=== PATIENT | female | born 1965 | race Caucasian/White ===

== ENCOUNTER → 2021-04-01 14:23 | Outpatient (CLI) | payer OTHER, SELFPAY ==
--- NOTE | 2021-04-01 | DI.MG.S_ITS ---
BILATERAL DIGITAL SCREENING MAMMOGRAM 3D/2D WITH CAD: 04/01/2021 CLINICAL: Routine screening. Comparison is made to exams dated: 10/23/2014 mammogram, 06/07/2013 mammogram, and 01/30/2012 mammogram - outside location. There are scattered fibroglandular elements in both breasts. Current study was also evaluated with a Computer Aided Detection (CAD) system. No significant masses, calcifications, or other findings are seen in either breast. There has been no significant interval change. IMPRESSION: NEGATIVE There is no mammographic evidence of malignancy. A 1 year screening mammogram is recommended. This exam was interpreted at Station ID: [id number]. NOTE: For mammograms, a report in lay terms will be sent to the patient. Approximately 15% of breast malignancies will not be visualized mammographically. In the management of a palpable breast mass, a negative mammogram must not discourage biopsy of a clinically suspicious lesion. Electronically Signed By: Omar Garcia M.D. at/cyndee:04/01/2021 15:35:48 letter sent: Normal Exam ACR BI-RADS Category 1: Negative [id number]
== END ==
PROVIDERS: PCP Family Medicine; Referring Provider Family Medicine; Visit Provider Family Medicine
DX: Z12.31 Encounter for screening mammogram for malignant neoplasm of breast (principal)
CPT/HCPCS: 77063; 77067

== ENCOUNTER → 2022-04-21 08:02 | Outpatient (CLI) | payer OTHER, SELFPAY ==
--- NOTE | 2022-04-21 | DI.NM.S_ITS ---
PROCEDURE: NM UPTAKE AND SCAN RADIOPHARMACEUTICAL: 0.38 mCi I-123 sodium iodide by mouth. INDICATIONS: Nontoxic single thyroid nodule TECHNIQUE: I-123 sodium iodide was administered orally. Anterior neck images were obtained, and iodine uptake by the thyroid gland calculated using roads supervisor's software. COMPARISON: None. FINDINGS: Morphology: Diffusely increased uptake within the right thyroid. Uptake: 6 hour thyroid uptake is 10.8% ; normal ranges are from 6-18%. 24 hour thyroid uptake is 17.4% ; normal ranges are from 10-30%. IMPRESSION: 1. Normal thyroid uptake values. 2. Diffusely increased right thyroid uptake; this could be further assessed with ultrasound, if clinically indicated. Dictated by: Nichelle Luong M.D. on 04/22/2022 at 11:19 Approved by: Nichelle Luong M.D. on 04/22/2022 at 11:21
== END ==
PROVIDERS: PCP Family Medicine; Referring Provider Family Medicine; Visit Provider Family Medicine
DX: E04.1 Nontoxic single thyroid nodule (principal)
CPT/HCPCS: 78014; A9516

== ENCOUNTER → 2022-06-10 09:34 | Outpatient (CLI) | payer OTHER, SELFPAY ==
--- NOTE | 2022-06-10 09:37 | DI.US.S_ITS ---
PROCEDURE: US THYROID INDICATIONS: Nontoxic single thyroid nodule TECHNIQUE: Real-time scanning was performed of the thyroid gland, with image documentation. COMPARISON: [place], [place], NM UPTAKE AND SCAN, 04/21/2022, 8:45. [facility], , US THYROID, 03/18/2022, 9:33. FINDINGS: Suboptimal exam due to body habitus. Right: Thyroid lobe measures 5.0 x 1.5 x 2.1 cm, and is heterogeneous in echotexture. Left: Thyroid lobe measures 5.4 x 1.2 x 1.5 cm, and is heterogeneous in echotexture. Isthmus: 3.2 mm thick. Nodule number: 1 Location: Right mid Size: 0.7 x 0.4 x 0.4 cm; previously 0.5 x 0.4 x 0.4 cm. Composition: Predominant cystic. Echogenicity: Hypoechoic Shape: wider than tall. Margins: Smooth Echogenic foci: Non Total points: 2 ACR TI-RADS category: 2 Nodule number: 2 Location: Left mid Size: 0.4 x 0.4 x 0 point cm. Composition: Cyst Echogenicity: Hypoechoic Shape: wider than tall. Margins: Small Echogenic foci: None Total points: 2 ACR TI-RADS category: 2 Multiple subcentimeter cervical lymph nodes are present. The largest lymph node on the right side measures 1.2 x 0.8 x 0.6 cm. The largest lymph node the left measures 1.0 x 0.6 x 0.6 cm. IMPRESSION: 1. The questionable 2.1 x 1.2 x 1.3 cm TI-RADS 4 nodule seen on the last exam is not well visualized on the current exam. Recommend a short-term follow-up ultrasound in 6-12 months. 2. Small thyroid nodules are present bilaterally. 3. Thyroid gland demonstrates heterogeneous echotexture. Recommend clinical correlation for history of thyroiditis. 4. Multiple subcentimeter cervical lymph nodes are present bilaterally, most likely reactive. ACR TI-RADS definitions and recommendations: TI-RADS 1 (benign): 0 points. FNA not needed. TI-RADS 2 (not suspicious): 2 points. FNA not needed. TI-RADS 3 (mildly suspicious): 3 points. * FNA if 2.5 cm or larger, follow up if 1.5 cm or larger (at 1, 3, and 5 years). TI-RADS 4 (moderately suspicious): 4-6 points. * FNA if 1.5 cm or larger, follow up if 1 cm or larger (at 1, 2, 3, and 5 years). TI-RADS 5 (highly suspicious): 7 points or more. * FNA if 1 cm or larger, follow up if 0.5 cm or larger (every year for 5 years). Dictated by: Berny Mccrary M.D. on 06/10/2022 at 12:51 Approved by: Berny Mccrary M.D. on 06/10/2022 at 13:03
== END ==
PROVIDERS: Referring Provider Otolaryngology; Visit Provider Otolaryngology
DX: E04.2 Nontoxic multinodular goiter (principal); R59.0 Localized enlarged lymph nodes
CPT/HCPCS: 76536

== ENCOUNTER 2022-06-26 19:35 | Emergency (ER) | payer OTHER, SELFPAY ==
--- NOTE | 2022-06-26 19:38 | ED.WOUNDLAC ---
HPI - Wound/Laceration <ANDREW Olvera Last Filed: 06/26/22 20:01> General Chief Complaint: Wound/Laceration Stated Complaint: RT. hand pinky finger laceration Time Seen by Provider: 06/26/22 19:38 History of Present Illness HPI narrative: This is a 56-year-old female presents emergency department due to cutting her right 5th finger while cooking in the kitchen. States it was a clean knife. Tetanus is not up-to-date. Does not report any decreases in range of motion of the finger. Related Data Allergies Allergy/AdvReac Type Severity Reaction Status Date / Time Penicillins [PENICILLINS] Allergy Unknown Unverified 12/09/17 12:05 Sulfa (Sulfonamide Allergy Unknown Unverified 12/09/17 12:05 Antibiotics) [SULFA (SULFONAMIDE ANTIBIOTICS)] Review of Systems <Rebel Nix PA-C - Last Filed: 06/26/22 20:01> Review of Systems Narrative: GENERAL: Denies chills, fatigue, malaise, fever, sweats. HEENT: Denies sinus pain, ear pain, sore throat, difficulty swallowing, dizziness. RESPIRATORY: Denies dyspnea, cough, wheezing, hemoptysis, sputum. CARDIOVASCULAR: Denies chest pain, palpitations, orthopnea, edema, GASTROINTESTINAL: Denies nausea, vomiting, abdominal pain, diarrhea, constipation, melena. : Denies dysuria, frequency, incontinence, hematuria, urinary retention. MUSCULOSKELETAL: Finger laceration, denies weakness, joint pain, or bony pain SKIN: Denies rash, skin lesions, or other NEUROLOGIC: Denies weakness, headache, numbness, change in speech, confusion, seizures, incoordination. PSYCHIATRIC: No concerning psychosocial issues. 12 point review of systems is negative except for those stated above Patient History <ANDREW Olvera Last Filed: 06/26/22 20:01> Social History Smoking Status: Never smoker Exam <ANDREW Olvera Last Filed: 06/26/22 20:01> Narrative Exam Narrative: GENERAL: Well-developed patient, in mild distress. HEAD: Atraumatic. Normocephalic. EYES: Pupils equal round and reactive. Extraocular motions intact. No scleral icterus. No injection or drainage. ENT: Nose without bleeding, purulent drainage. Throat without erythema, tonsillar hypertrophy or exudate. Airway patent. NECK: Trachea midline. Non tender CARDIOVASCULAR: Regular rate and rhythm without murmurs, gallops, or rubs. RESPIRATORY: Clear to auscultation. Breath sounds equal bilaterally. No wheezes, rales, or rhonchi. GASTROINTESTINAL: Abdomen soft, non-tender, nondistended. EXTREMITIES: No edema or joint tenderness. BACK: Nontender without deformity or crepitance. No flank tenderness. NEURO: AOx3. SKIN: 1 cm laceration to the palmar aspect of the right 5th finger. No active bleeding. No rash or erythema of visible areas Initial Vital Signs Initial Vital Signs: Vital Signs Temperature 97.9 F 06/26/22 19:43 Pulse Rate 68 06/26/22 19:43 Respiratory Rate 18 06/26/22 19:43 Blood Pressure 167/90 H 06/26/22 19:43 Pulse Oximetry 98 06/26/22 19:43 Oxygen Delivery Method 06/26/22 19:43 <Fabienne Thurston DO - Last Filed: 06/27/22 07:27> Initial Vital Signs Initial Vital Signs: Vital Signs Temperature 97.9 F 06/26/22 19:43 Pulse Rate 68 06/26/22 19:43 Respiratory Rate 18 06/26/22 19:43 Blood Pressure 167/90 H 06/26/22 19:43 Pulse Oximetry 98 06/26/22 19:43 Oxygen Delivery Method 06/26/22 19:43 Procedures <ANDREW Olvera Last Filed: 06/26/22 20:01> Laceration Repair Laceration 1: Time of procedure: 19:51 Site: hand Size (cm): 1 Description: linear Depth: simple, single layer Local Anesthetic: lidocaine 1% Amount of anesthesia used (mL): 2 Pre-repair: irrigated extensively Skin layer closed with: nylon Skin layer suture size: 5-0 Number of sutures: 2 Technique: simple, interrupted Course <ANDREW Olvera Last Filed: 06/26/22 20:01> Orders Ordered: Discontinued Medications Diphtheria/Tetanus/Acell Pertussis (Diph,Pertuss(Acell),Tet Vac/Pf 0.5 Ml Syringe) 0.5 ml IM .ONCE ONE Stop: 06/26/22 19:50 Last Admin: 06/26/22 19:59 Dose: Not Given Documented By: RL Diphtheria/Tetanus/Acell Pertussis (Tet,Diph,Pertuss(Acell),Vac/Pf 0.5 Ml Syringe) 0.5 ml IM .ONCE ONE Stop: 06/26/22 20:00 Last Admin: 06/26/22 20:07 Dose: 0.5 ml Documented By: RL Lidocaine HCl (Lidocaine 2% Inj Mdv 20ml) 5 ml INJ NOW ONE Stop: 06/26/22 19:52 Last Admin: 06/26/22 20:08 Dose: 5 ml Documented By: RL Lidocaine/Epinephrine (Lidocaine 1% W/Epi) 4 ml INJ INTRA-OP ONE Stop: 06/26/22 19:41 Last Admin: 06/26/22 20:12 Dose: Not Given Documented By: RL Vital Signs Vital signs: Vital Signs - 8 hr 06/26/22 19:43 Temperature 97.9 F Pulse Rate 68 Respiratory Rate 18 Blood Pressure 167/90 H Pulse Oximetry 98 Oxygen Delivery Method Room Air <Fabienne Thurston DO - Last Filed: 06/27/22 07:27> Orders Ordered: Discontinued Medications Diphtheria/Tetanus/Acell Pertussis (Diph,Pertuss(Acell),Tet Vac/Pf 0.5 Ml Syringe) 0.5 ml IM .ONCE ONE Stop: 06/26/22 19:50 Last Admin: 06/26/22 19:59 Dose: Not Given Documented By: RL Diphtheria/Tetanus/Acell Pertussis (Tet,Diph,Pertuss(Acell),Vac/Pf 0.5 Ml Syringe) 0.5 ml IM .ONCE ONE Stop: 06/26/22 20:00 Last Admin: 06/26/22 20:07 Dose: 0.5 ml Documented By: RL Lidocaine HCl (Lidocaine 2% Inj Mdv 20ml) 5 ml INJ NOW ONE Stop: 06/26/22 19:52 Last Admin: 06/26/22 20:08 Dose: 5 ml Documented By: RL Lidocaine/Epinephrine (Lidocaine 1% W/Epi) 4 ml INJ INTRA-OP ONE Stop: 06/26/22 19:41 Last Admin: 06/26/22 20:12 Dose: Not Given Documented By: RL Vital Signs Vital signs: Vital Signs - 8 hr 06/26/22 19:43 Temperature 97.9 F Pulse Rate 68 Respiratory Rate 18 Blood Pressure 167/90 H Pulse Oximetry 98 Oxygen Delivery Method Room Air MDM - Wound/Laceration <Rebel Nix PA-C - Last Filed: 06/26/22 20:01> [facility] Narrative Medical decision making narrative: 56-year-old female presents to the emergency department due to a small laceration to the right 5th finger. This was closed using sutures without complications. Tetanus updated. No evidence of any kind of flexor tendon damage as patient had full range of motion. Discharge Plan Departure Patient Disposition: Home Clinical Impression: Laceration Instructions: DI for Laceration Repair Activity Restrictions/Additional Instructions: Thank you for coming to the [facility] Emergency Department today. Please follow-up with your primary care provider or walk-in clinic for suture removal in approximately 7-10 days. I hope you feel better soon. Referrals: Provider,Vero LOERA [Primary Care Provider] - Visit Report Forms: Patient Portal/API <Fabienne Thurston DO - Last Filed: 06/27/22 07:27> Cosign ED Attending Leleature Attestation: I was immediately available in the department for consultation. Documentation has been reviewed. I agree with assessment and plan.
[2022-06-26 19:43] VITALS: BP 167/90; PULSE 68; RESP 18; TEMP 36.6; O2SAT 98
[2022-06-26] MEDS: TET,DIPH,PERTUSS(ACELL),VAC/PF 0.5 ML SYRINGE IM (20:07)
[2022-06-26] MEDS: LIDOCAINE 2% INJ MDV 20ML 5 ML INJ (20:08)
[2022-06-26 20:20] VITALS: BP 144/81; PULSE 64; RESP 18; O2SAT 98
== END 2022-06-26 20:21 | disposition home or self-care (01) ==
LOC: ED 19:39
PROVIDERS: Emergency Provider Physician Assistant Medical
DX: S61.216A Laceration without foreign body of right little finger without damage to nail, initial encounter (principal); W26.0XXA Contact with knife, initial encounter; Z23 Encounter for immunization
CPT/HCPCS: 12001; 90471; 99283; 90715

== ENCOUNTER 2022-12-22 16:40 | Emergency (ER) | payer OTHER, SELFPAY ==
[2022-12-22] VITALS (11 sets, daily range): BP systolic 159–174; BP diastolic 81–94; PULSE 59–84; RESP 18; TEMP 36.9; O2SAT 95–97; BMI 40.9
[2022-12-22] MEDS: KETOROLAC 30 MG/ML VIAL 15 MG IV (17:09)
[2022-12-22 17:13] LABS: Add Manual Diff / Slide Review NO; Basophils Absolute Auto 100 /uL (0-100); Basophils Percent Auto 0.7 % (0-2); Eosinophils Absolute Auto 400 /uL (0-450); Eosinophils Percent Auto 4.2 % (2-4); Hemoglobin 13.4 g/dL (12.0-16.0); Lymphocytes Absolute Auto 3700 /uL (1100-4500); Lymphocytes Percent Auto 38.8 % (25-40); Mean Corpuscular HGB Conc 33.6 % (30-36); Mean Corpuscular Hemoglobin 29.3 PG (26-34); Mean Corpuscular Volume 87.2 fL (80-100); Monocytes Absolute Auto 600 /uL (0-900); Monocytes Percent Auto 6.7 % (3-14); Neutrophils Absolute Auto 4700 /uL (1500-7000); Neutrophils Percent Auto 49.6 % (50-75); Platelet Count 300 X10^3/uL (150-400); Red Blood Cell Count 4.59 X10^6/uL (4.0-5.2); Red Cell Distribution Width 14.2 % (11.6-14.8); White Blood Cell Count 9.5 X10^3/uL (4.5-11.0)
--- NOTE | 2022-12-22 17:20 | DI.CT.S_ITS ---
PROCEDURE: CT KIDNEY URETER BLADDER (KUB) INDICATIONS: Left flank pain, h/o kidney stones TECHNIQUE: Axial sections were acquired from the lung bases to the pubic symphysis. Coronal and sagittal reformats were performed. For radiation dose reduction, the following was used: automated exposure control, adjustment of mA and/or kV according to patient size. COMPARISON: None. FINDINGS: Image quality: Excellent. Lung bases: Unremarkable. Heart: No significant findings. URINARY: Right Kidney: No stones or hydronephrosis. Right Ureter: No hydroureter. Left Kidney: There are 4 calcifications within the inferior aspect of the right kidney. The 7 mm posterior calcification on series 2, image 39 measures Hounsfield units 559. The more anterior calcification on series 2, image 39 measures 5 mm Hounsfield units 545. The calcification overlying the renal pelvis on series 2, image 36 measures 6 mm Hounsfield units 722. The parenchymal calcification on series 2, image 37 measures 6 mm, Hounsfield units 456. No obstruction. Left Ureter: No hydroureter. Bladder: Normal wall thickness. No stones. ABDOMEN: Liver: Liver is enlarged measuring 21 cm with mild steatosis. Gallbladder: Unremarkable. Biliary ducts: Unremarkable. Pancreas: Unremarkable. Spleen: Unremarkable. Adrenal Glands: Unremarkable. Stomach and Bowel: Stomach, small bowel loops, and colon are nonobstructive. Scattered colonic diverticula are present. Peritoneum: No abnormal intraperitoneal fluid. No free air. Ventral Wall: No hernia. Abdominal Nodes: No enlarged retroperitoneal or mesenteric lymph nodes. Vessels: Aorta and inferior vena cava are normal in size. PELVIS: Pelvic Organs: Unremarkable. Pelvic Nodes: Unremarkable. Miscellaneous: No inguinal hernias are seen. Bones: Unremarkable. IMPRESSION: Nonobstructing left renal calculi. Diverticulosis. Hepatomegaly with steatosis. Dictated by: Catherine Batista M.D. on 12/22/2022 at 17:49 Approved by: Catherine Batista M.D. on 12/22/2022 at 17:52
[2022-12-22 17:27] LABS: Alanine Aminotransferase 27 IU/L (<35); Albumin 4.4 g/dL (3.5-5.0); Albumin Globulin Ratio 1.2 (1.0-2.8); Alkaline Phosphatase 117 U/L (38-126); Aspartate Aminotransferase 25 IU/L (14-36); BUN Creatinine Ratio 28.3 (6-22); Bilirubin Total 0.4 mg/dL (0.2-1.3); Blood Urea Nitrogen 15 mg/dL (7-17); Carbon Dioxide 26 mmol/L (22-32); Chloride 101 mmol/L (98-107); Estimated Glomerular Filt Rate > 60 mL/min (>60); Globulin 3.6 g/dL (1.7-4.1); Glucose 103 mg/dL (70-100); HEMOLYSIS 18 (0-50); Lipase 235 U/L (23-300); Potassium 3.8 mmol/L (3.4-5.1); Sodium 136 mmol/L (137-145)
--- NOTE | 2022-12-22 19:06 | ED.GENADULT ---
HPI - General Adult General Chief complaint: Urogenital-Female Stated complaint: POSSIBLE KIDNEY STONES Time Seen by Provider: 12/22/22 18:31 Source: patient Mode of arrival: Ambulatory Limitations: no limitations History of Present Illness HPI narrative: Patient is a 57-year-old female. Has a known history of kidney stones. Is here for evaluation of left-sided flank pain. She states that this has happened to her off and on for the past several years. He does have a urologist that she is seen in the past but nothing recent. The discomfort that she is having now started within the past 1-2 days. She is having some blood in her urine. The pain is on her left flank. No fevers. No vomiting. Related Data Previous Rx's Medication Instructions Recorded hydrocodone 5 mg-acetaminophen 325 1 tab PO Q6H PRN pain #10 tabs 12/22/22 mg tablet ondansetron 4 mg disintegrating 4 mg PO Q6H PRN nausea and 12/22/22 tablet vomiting #10 tabs Allergies Allergy/AdvReac Type Severity Reaction Status Date / Time Penicillins [PENICILLINS] Allergy Unknown Verified 12/22/22 16:48 Sulfa (Sulfonamide Allergy Unknown Verified 12/22/22 16:48 Antibiotics) [SULFA (SULFONAMIDE ANTIBIOTICS)] Review of Systems Constitutional Constitutional: Reports system reviewed and no additional complaints, except as documented Respiratory Respiratory: Reports system reviewed and no additional complaints, except as documented Gastrointestinal Gastrointestinal: Reports system reviewed and no additional complaints, except as documented Genitourinary Genitourinary: Reports system reviewed and no additional complaints, except as documented Integumentary/Breasts Skin/Breast: Reports system reviewed and no additional complaints, except as documented Neurologic Neurologic: Reports system reviewed and no additional complaints, except as documented Hematologic/Lymphatic On Anticoagulants: No Patient History Social History Smoking Status: Never smoker Smoking Status: Never smoker alcohol intake frequency: a few times a month Substance Use Type: marijuana Exam Initial Vital Signs Initial Vital Signs: Vital Signs Temperature 98.5 F 12/22/22 16:43 Pulse Rate 77 12/22/22 16:43 Respiratory Rate 18 12/22/22 16:43 Blood Pressure 165/86 H 12/22/22 16:43 Pulse Oximetry 95 12/22/22 16:43 Oxygen Delivery Method Room Air 12/22/22 16:43 Const General: cooperative, comfortable and No ill appearing HENVA Head: normal to inspection and normocephalic Resp Effort & Inspection: normal respiratory effort Cardio Rate: regular rate GI Inspection: normal to inspection and non-distended Palpation: No tender Skin General: no rashes or lesions noted Neuro General: patient alert, patient awake and moves all extremities Extrem General: normal to inspection and capillary refill normal Course Orders Ordered: ED Orders 12/22/22 17:08 Complete Blood Count AUTO DIFF Stat Comprehensive Metabolic Panel Stat Lipase Stat 12/22/22 17:20 CT kidney ureter bladder (KUB) Stat 12/22/22 19:33 Urinalysis and Microscopic Stat Discontinued Medications Hydrocodone Bitart/Acetaminophen (Hydrocodone/Acet 5/325 Prepack) [facility] Stop: 12/22/22 20:15 Last Admin: 12/22/22 20:34 Dose: 1 bottle Documented By: KAYLEIGH Ketorolac Tromethamine (Ketorolac 30 Mg/Ml Vial) 15 mg IV NOW ONE Stop: 12/22/22 16:57 Last Admin: 12/22/22 17:09 Dose: 15 mg Documented By: AMU Ondansetron HCl (Ondansetron 4 Mg Odt) 4 mg PO NOW PRN PRN Reason: Nausea And Vomiting Ondansetron HCl (Ondansetron 4 Mg/2 Ml Inj) 4 mg IV NOW PRN PRN Reason: Nausea And Vomiting Ondansetron HCl (Ondansetron 4 Mg Odt Prepack) [facility] bottle [facility] Stop: 12/22/22 20:15 Last Admin: 12/22/22 20:34 Dose: 1 bottle Documented By: KAYLEIGH Vital Signs Vital signs: Vital Signs - 8 hr 12/22/22 16:43 12/22/22 18:26 12/22/22 18:28 Temperature 98.5 F Pulse Rate 77 84 71 Respiratory Rate 18 Blood Pressure 165/86 H Pulse Oximetry 95 96 97 Oxygen Delivery Method Room Air 12/22/22 18:28 12/22/22 18:30 12/22/22 18:30 Temperature Pulse Rate 64 Respiratory Rate Blood Pressure 167/86 H 165/85 H Pulse Oximetry 96 Oxygen Delivery Method 12/22/22 19:00 12/22/22 19:01 12/22/22 19:01 Temperature Pulse Rate 67 64 Respiratory Rate Blood Pressure 165/81 H Pulse Oximetry 96 95 Oxygen Delivery Method 12/22/22 19:40 12/22/22 19:41 12/22/22 19:41 Temperature Pulse Rate 61 62 Respiratory Rate Blood Pressure 159/94 H Pulse Oximetry 96 96 Oxygen Delivery Method 12/22/22 20:00 12/22/22 20:00 12/22/22 20:30 Temperature Pulse Rate 61 64 Respiratory Rate Blood Pressure 174/90 H Pulse Oximetry 97 97 Oxygen Delivery Method 12/22/22 20:31 12/22/22 20:31 Temperature Pulse Rate 59 L Respiratory Rate Blood Pressure 167/85 H Pulse Oximetry 97 Oxygen Delivery Method Medical Decision Making Lab Data Lab results reviewed: Yes I reviewed the patient's lab results. 12/22/22 17:08 12/22/22 17:08 Labs: Lab Results 12/22/22 12/22/22 12/22/22 Range/Units 17:08 17:08 19:33 WBC 9.5 (4.5-11.0) X10^3/uL RBC 4.59 (4.0-5.2) X10^6/uL Hgb 13.4 (12.0-16.0) g/dL Hct 40.0 (36-46) % MCV 87.2 (80-100) fL MCH 29.3 (26-34) PG MCHC 33.6 (30-36) % RDW 14.2 (11.6-14.8) % Plt Count 300 (150-400) X10^3/uL Neut % (Auto) 49.6 L (50-75) % Lymph % (Auto) 38.8 (25-40) % [place] % (Auto) 6.7 (3-14) % Eos % (Auto) 4.2 H (2-4) % Baso % (Auto) 0.7 (0-2) % Neut # (Auto) 4700 (2649-2102) /uL Lymph # (Auto) 3700 (4051-4011) /uL [place] # (Auto) 600 (0-900) /uL Eos # (Auto) 400 (0-450) /uL Baso # (Auto) 100 (0-100) /uL Sodium 136 L (137-145) mmol/L Potassium 3.8 (3.4-5.1) mmol/L Chloride 101 (98-107) mmol/L Carbon Dioxide 26 (22-32) mmol/L BUN 15 (7-17) mg/dL Creatinine 0.53 (0.52-1.04) mg/dL Estimated GFR > 60 (>60) mL/min BUN/Creatinine Ratio 28.3 H (6-22) Glucose 103 H (70-100) mg/dL Calcium 9.0 (8.4-10.2) mg/dL Total Bilirubin 0.4 (0.2-1.3) mg/dL AST 25 (14-36) IU/L ALT 27 (<35) IU/L Alkaline Phosphatase 117 (38-126) U/L Total Protein 8.0 (6.3-8.2) g/dL Albumin 4.4 (3.5-5.0) g/dL Globulin 3.6 (1.7-4.1) g/dL Albumin/Globulin Ratio 1.2 (1.0-2.8) Lipase 235 (23-300) U/L Urine Color Yellow Urine Appearance Clear Urine pH 6.0 (4.5-8.0) Ur Specific [place] 1.025 (1.000-1.035) Urine Protein Trace H (Negative) Urine Glucose (UA) 2+ H (Negative) g/dL Urine Ketones Trace H (NEGATIVE) Urine Occult Blood 3+ H (Negative) Urine Nitrate Negative (Negative) Urine Bilirubin Negative (NEGATIVE) Urine Urobilinogen 0.2 (0.2) E.U./dL Ur Leukocyte Esterase Negative (NEGATIVE) Urine RBC 10-30/hpf H (0-5/HPF) Urine WBC 1-5/hpf (0-5/HPF) Ur Squamous Epith Cells 0-1 /hpf (0-5/HPF) Urine Bacteria None seen (None) Urine Mucus 1+ H (Negative) Ur Culture Indicated? Cult not indicated Imaging Data CT scan - abdomen/pelvis: Radiologist's Impression: PROCEDURE:? CT KIDNEY URETER BLADDER (KUB) ? INDICATIONS:? Left flank pain, h/o kidney stones ? TECHNIQUE:? Axial sections were acquired from the lung bases to the pubic symphysis.? Coronal and sagittal reformats were performed.? For radiation dose reduction, the following was used: ?automated exposure control, adjustment of mA and/or kV according to patient size.? ? COMPARISON:? None. ? FINDINGS:? Image quality:? Excellent.? ? Lung bases:? Unremarkable.? ? Heart:? No significant findings. ? URINARY: Right Kidney:? ?No stones or hydronephrosis.? Right Ureter:? No hydroureter.? ? Left Kidney:? There are 4 calcifications within the inferior aspect of the right kidney.? The 7 mm posterior calcification on series 2, image 39 measures Hounsfield units 559.? The more anterior calcification on series 2, image 39 measures 5 mm Hounsfield units 545. ?The calcification overlying the renal pelvis on series 2, image 36 measures 6 mm Hounsfield units 722. The parenchymal calcification on series 2, image 37 measures 6 mm, Hounsfield units 456. No obstruction.? Left Ureter:? No hydroureter.? ? Bladder:? Normal wall thickness. No stones.? ABDOMEN: Liver:? Liver is enlarged measuring 21 cm with mild steatosis. Gallbladder:? Unremarkable.? ? Biliary ducts:? Unremarkable.? ? Pancreas:? Unremarkable.? ? Spleen:? Unremarkable.? ? Adrenal Glands:? Unremarkable.? ? ? Stomach and Bowel:? Stomach, small bowel loops, and colon are nonobstructive.? Scattered colonic diverticula are present. Peritoneum:? No abnormal intraperitoneal fluid.? No free air.? ? Ventral Wall:? ?No hernia.? Abdominal Nodes:? No enlarged retroperitoneal or mesenteric lymph nodes.? Vessels:? Aorta and inferior vena cava are normal in size.? ? PELVIS: Pelvic Organs:? Unremarkable.? ? Pelvic Nodes: Unremarkable. Miscellaneous: No inguinal hernias are seen.? Bones:? Unremarkable. ? IMPRESSION:? ? Nonobstructing left renal calculi. ? Diverticulosis. ? Hepatomegaly with steatosis. MDM Narrative Medical decision making narrative: Patient does have a left-sided kidney stone but no ureteral stone. Her urinalysis does have blood but no signs of infection. Her kidney functions unremarkable. CT scan of her belly shows no other indication for the abdominal pain. No fevers. No indication for surgical consultation. I did discuss this with the patient. I did discuss that it could not specifically state that the stone in her left kidney was causing her discomfort today but did not appear that there was another reason to cause her pain. Low suspicion for pyelo or pancreatitis. Will discharge patient home. She already has plans to talk with her urologist about a follow-up. She was given return precautions. She expressed understanding and agreement. Discharge Plan Departure Patient Disposition: Home Clinical Impression: Flank pain, Hematuria, Kidney stones Instructions: DI for Kidney Stones, DI for Hematuria Activity Restrictions/Additional Instructions: I do recommend that you contact your primary doctor and also your urologist for a follow-up. Use the medications as directed. Return to the emergency department for new or worsening symptoms. Prescriptions: New ondansetron 4 mg tablet,disintegrating 4 mg PO Q6H PRN (Reason: nausea and vomiting) Qty: 10 0RF hydrocodone-acetaminophen 5-325 mg tablet 1 tab PO Q6H PRN (Reason: pain) Qty: 10 0RF Referrals: ProviderVero [Primary Care Provider] - Stand Alone Forms: Patient Portal/API
[2022-12-22 19:53] LABS: Appearance Urine UA CLEAR; Bilirubin Urine UA NEGATIVE (NEGATIVE); Color Urine UA YELLOW; Glucose Urine UA 2+ g/dL (Negative); Ketones Urine UA TRACE (NEGATIVE); Leukocyte Esterase Urine UA NEGATIVE (NEGATIVE); Nitrite Urine UA NEGATIVE (Negative); Occult Blood Urine UA 3+ (Negative); Protein Urine UA TRACE (Negative); Specific Gravity Urine UA 1.025 (1.000-1.035); Urobilinogen Urine UA 0.2 E.U./dL (0.2)
[2022-12-22 20:10] LABS: RBC Urine 10-30/HPF (0-5/HPF); WBC Urine 1-5/HPF (0-5/HPF)
[2022-12-22 20:11] LABS: Bacteria Urine None Seen; Culture Indicated Urine Cult Not Indicated; Mucus Urine 1+ (Negative); Squamous Epithelial Cell Urine 0-1 /HPF (0-5/HPF)
[2022-12-22] MEDS: ONDANSETRON 4 MG ODT PREPACK 1 BOTTLE MISC (20:34)
[2022-12-22] MEDS: HYDROCODONE/ACET 5/325 PREPACK 1 BOTTLE MISC (20:34)
== END 2022-12-22 20:40 | disposition home or self-care (01) ==
PROVIDERS: Emergency Medicine; Emergency Provider Emergency Medicine
DX: N20.0 Calculus of kidney (principal); R31.9 Hematuria, unspecified; R10.9 Unspecified abdominal pain
CPT/HCPCS: 74176; 80053; 81001; 83690; 85025; 96374; 99284; J1885

== ENCOUNTER 2023-03-18 17:52 | Emergency (ER) | payer OTHER, SELFPAY ==
[2023-03-18 18:03] VITALS: BP 139/71; PULSE 78; RESP 18; TEMP 36.9; O2SAT 99; BMI 41.3
--- NOTE | 2023-03-18 18:11 | DI.CT.S_ITS ---
PROCEDURE: CT KIDNEY URETER BLADDER (KUB) INDICATIONS: recent left uret stent - left flank pain- abd bloating TECHNIQUE: Axial sections were acquired from the lung bases to the pubic symphysis. Coronal and sagittal reformats were performed. For radiation dose reduction, the following was used: automated exposure control, adjustment of mA and/or kV according to patient size. COMPARISON: [facility], CT, CT KIDNEY URETER BLADDER (KUB), 12/22/2022, 17:29. FINDINGS: Image quality: Excellent. Lung bases: Unremarkable. Heart: No significant findings. Kidneys and ureters: Left-sided nephroureteral stent is present in appropriate position. There is no hydronephrosis. There are several nonobstructing left lower pole intraparenchymal calculi. There is a left pelvic calculus, also nonobstructing due to the presence of the stent. No other ureteral calculi. There is a trace amount of expected gas in the left intrarenal collecting system. No perinephric inflammation or fluid collection. The right kidney and ureter are normal. The urinary bladder is decompressed and there are no stones. ABDOMEN: Liver: No masses Gallbladder: Normal wall thickness. Biliary ducts: Nondilated. Pancreas: Normal. Spleen: Normal size. Adrenal Glands: No nodules. Stomach and Bowel: Sigmoid diverticulosis and occasional diverticula elsewhere in the colon. Normal appendix. Decompressed stomach and normal small bowel thought obstruction. Peritoneum: No abnormal intraperitoneal fluid. No free air. Ventral Wall: No hernia. Abdominal Nodes: No enlarged retroperitoneal or mesenteric lymph nodes. Vessels: Aorta and inferior vena cava are normal in size. PELVIS: Pelvic Organs: Anteverted uterus. The anterior serosal surface is in close association with the anterior abdominal wall. A scar is noted. No suspicious adnexal masses. Pelvic Nodes: Unremarkable. Miscellaneous: No inguinal hernias are seen. Bones: No suspicious bone lesions. Moderate to prominent degenerative disc change at L4-5. No fractures to cause left flank pain. IMPRESSION: 1. Appropriate position of left nephroureteral stent and no evidence of acute hydronephrosis or perinephric inflammation. 2. There are several calcifications retained in the left lower pole and one renal pelvic calcification. No parapelvic inflammation. 3. Colonic diverticulosis without acute diverticulitis. 4. No explanation for left flank pain. Dictated by: Jennifer Lay M.D. on 03/18/2023 at 19:05 Approved by: Jennifer Lay M.D. on 03/18/2023 at 19:18
[2023-03-18 19:07] LABS: Add Manual Diff / Slide Review NO; Basophils Absolute Auto 100 /uL (0-100); Eosinophils Absolute Auto 200 /uL (0-450); Eosinophils Percent Auto 3.2 % (2-4); Hematocrit 39.5 % (36-46); Hemoglobin 13.2 g/dL (12.0-16.0); Lymphocytes Absolute Auto 2500 /uL (1100-4500); Lymphocytes Percent Auto 34.2 % (25-40); Mean Corpuscular HGB Conc 33.3 % (30-36); Mean Corpuscular Hemoglobin 29.5 PG (26-34); Mean Corpuscular Volume 88.4 fL (80-100); Monocytes Absolute Auto 600 /uL (0-900); Monocytes Percent Auto 8.1 % (3-14); Neutrophils Absolute Auto 4000 /uL (1500-7000); Neutrophils Percent Auto 53.5 % (50-75); Platelet Count 284 X10^3/uL (150-400); Red Blood Cell Count 4.46 X10^6/uL (4.0-5.2); Red Cell Distribution Width 13.5 % (11.6-14.8); White Blood Cell Count 7.4 X10^3/uL (4.5-11.0)
[2023-03-18 19:17] LABS: Alanine Aminotransferase 30 IU/L (<35); Albumin 4.5 g/dL (3.5-5.0); Albumin Globulin Ratio 1.3 (1.0-2.8); Alkaline Phosphatase 80 U/L (38-126); Aspartate Aminotransferase 30 IU/L (14-36); BUN Creatinine Ratio 30.2 (6-22); Bilirubin Total 0.5 mg/dL (0.2-1.3); Blood Urea Nitrogen 19 mg/dL (7-17); Calcium 9.1 mg/dL (8.4-10.2); Carbon Dioxide 27 mmol/L (22-32); Chloride 100 mmol/L (98-107); Estimated Glomerular Filt Rate > 60 mL/min (>60); Globulin 3.4 g/dL (1.7-4.1); Glucose 99 mg/dL (70-100); Lipase 558 U/L (23-300); Potassium 4.1 mmol/L (3.4-5.1); Sodium 137 mmol/L (137-145); Total Protein 7.9 g/dL (6.3-8.2)
[2023-03-18 19:18] LABS: HEMOLYSIS 71 (0-50)
[2023-03-18 19:25] LABS: Bacteria Urine Occasional (0-1); Ictotest Urine Positive (Negative); RBC Urine 5-10/HPF (0-5/HPF); Squamous Epithelial Cell Urine 5-10 /HPF (0-5/HPF); WBC Urine 1-5/HPF (0-5/HPF)
--- NOTE | 2023-03-18 19:29 | ED_ITS ---
HPI - General Adult General Chief complaint: Urogenital-Female Stated complaint: possible kidney infection Time Seen by Provider: 03/18/23 19:03 Source: patient Mode of arrival: Ambulatory History of Present Illness HPI narrative: Patient is a 57-year-old female. Recently had a left ureteral stent placed by Urology. She does see the [facility] for this. This was placed because of stricture she was having and also because of a left-sided kidney stone. She stated that she was supposed to have lithotripsy but because of the strictures we were unable to perform this of the stent was placed. She is not currently on any antibiotics. Within the past 24 hours she started to have symptoms that were consistent with prior urinary tract infections. She was told to come to the emergency department for evaluation of a potential urinary tract infection. Patient is not having fevers. No vomiting. Overall feels well. Related Data Previous Rx's Medication Instructions Recorded hydrocodone 5 mg-acetaminophen 325 1 tab PO Q6H PRN pain #10 tabs 12/22/22 mg tablet ondansetron 4 mg disintegrating 4 mg PO Q6H PRN nausea and 12/22/22 tablet vomiting #10 tabs cephalexin 500 mg capsule 500 mg PO TID 10 days #30 caps 03/18/23 Allergies Allergy/AdvReac Type Severity Reaction Status Date / Time Penicillins [PENICILLINS] Allergy Unknown Verified 03/18/23 18:08 Sulfa (Sulfonamide Allergy Unknown Verified 03/18/23 18:08 Antibiotics) [SULFA (SULFONAMIDE ANTIBIOTICS)] Review of Systems Constitutional Constitutional: Reports system reviewed and no additional complaints, except as documented Cardiovascular Cardiovascular: Reports system reviewed and no additional complaints, except as documented Respiratory Respiratory: Reports system reviewed and no additional complaints, except as documented Genitourinary Genitourinary: Reports system reviewed and no additional complaints, except as documented Integumentary/Breasts Skin/Breast: Reports system reviewed and no additional complaints, except as documented Neurologic Neurologic: Reports system reviewed and no additional complaints, except as documented Patient History Social History Smoking Status: Never smoker Smoking Status: Never smoker alcohol intake frequency: a few times a month Substance Use Type: marijuana Exam Initial Vital Signs Initial Vital Signs: Vital Signs Temperature 98.4 F 03/18/23 18:03 Pulse Rate 78 03/18/23 18:03 Respiratory Rate 18 03/18/23 18:03 Blood Pressure 139/71 03/18/23 18:03 Pulse Oximetry 99 03/18/23 18:03 Oxygen Delivery Method Room Air 03/18/23 18:03 HENMT Head: normal to inspection and normocephalic Resp Effort & Inspection: normal respiratory effort Cardio Rate: regular rate GI Inspection: non-distended Course Orders Ordered: ED Orders 03/18/23 18:11 CT kidney ureter bladder (KUB) Stat 03/18/23 18:15 Complete Blood Count AUTO DIFF Stat Comprehensive Metabolic Panel Stat Lipase Stat 03/18/23 19:02 Ictotest Urine Stat Urine Culture Stat Urine Microscopic Stat 03/18/23 19:19 EKG-12 Lead Stat Discontinued Medications Cephalexin HCl (Cephalexin 250 Mg Capsule) 500 mg PO NOW ONE Stop: 03/18/23 19:31 Last Admin: 03/18/23 19:37 Dose: 500 mg Documented By: VAZQUEZ Ondansetron HCl (Ondansetron 4 Mg Odt) 4 mg PO NOW PRN PRN Reason: Nausea And Vomiting Ondansetron HCl (Ondansetron 4 Mg/2 Ml Inj) 4 mg IV NOW PRN PRN Reason: Nausea And Vomiting Vital Signs Vital signs: Vital Signs - 8 hr 03/18/23 18:03 03/18/23 19:56 Temperature 98.4 F Pulse Rate 78 59 L Respiratory Rate 18 16 Blood Pressure 139/71 138/83 Pulse Oximetry 99 98 Oxygen Delivery Method Room Air Room Air Medical Decision Making Lab Data Lab results reviewed: Yes I reviewed the patient's lab results. 03/18/23 18:15 03/18/23 18:15 Labs: Lab Results 03/18/23 03/18/23 03/18/23 Range/Units 18:15 18:15 19:02 WBC 7.4 (4.5-11.0) X10^3/uL RBC 4.46 (4.0-5.2) X10^6/uL Hgb 13.2 (12.0-16.0) g/dL Hct 39.5 (36-46) % MCV 88.4 (80-100) fL MCH 29.5 (26-34) PG MCHC 33.3 (30-36) % RDW 13.5 (11.6-14.8) % Plt Count 284 (150-400) X10^3/uL Neut % (Auto) 53.5 (50-75) % Lymph % (Auto) 34.2 (25-40) % [place] % (Auto) 8.1 (3-14) % Eos % (Auto) 3.2 (2-4) % Baso % (Auto) 1.0 (0-2) % Neut # (Auto) 4000 (7885-4422) /uL Lymph # (Auto) 2500 (4181-2678) /uL [place] # (Auto) 600 (0-900) /uL Eos # (Auto) 200 (0-450) /uL Baso # (Auto) 100 (0-100) /uL Sodium 137 (137-145) mmol/L Potassium 4.1 (3.4-5.1) mmol/L Chloride 100 (98-107) mmol/L Carbon Dioxide 27 (22-32) mmol/L BUN 19 H (7-17) mg/dL Creatinine 0.63 (0.52-1.04) mg/dL Estimated GFR > 60 (>60) mL/min BUN/Creatinine Ratio 30.2 H (6-22) Glucose 99 (70-100) mg/dL Calcium 9.1 (8.4-10.2) mg/dL Total Bilirubin 0.5 (0.2-1.3) mg/dL AST 30 (14-36) IU/L ALT 30 (<35) IU/L Alkaline Phosphatase 80 (38-126) U/L Total Protein 7.9 (6.3-8.2) g/dL Albumin 4.5 (3.5-5.0) g/dL Globulin 3.4 (1.7-4.1) g/dL Albumin/Globulin Ratio 1.3 (1.0-2.8) Lipase 558 H (23-300) U/L Ur Bilirubin Confirm Positive H (Negative) Urine RBC (0-5/HPF) Urine WBC (0-5/HPF) Ur Squamous Epith Cells (0-5/HPF) Urine Bacteria (None) 03/18/23 Range/Units 19:02 WBC (4.5-11.0) X10^3/uL RBC (4.0-5.2) X10^6/uL Hgb (12.0-16.0) g/dL Hct (36-46) % MCV (80-100) fL MCH (26-34) PG MCHC (30-36) % RDW (11.6-14.8) % Plt Count (150-400) X10^3/uL Neut % (Auto) (50-75) % Lymph % (Auto) (25-40) % [place] % (Auto) (3-14) % Eos % (Auto) (2-4) % Baso % (Auto) (0-2) % Neut # (Auto) (0219-0347) /uL Lymph # (Auto) (1978-3476) /uL [place] # (Auto) (0-900) /uL Eos # (Auto) (0-450) /uL Baso # (Auto) (0-100) /uL Sodium (137-145) mmol/L Potassium (3.4-5.1) mmol/L Chloride (98-107) mmol/L Carbon Dioxide (22-32) mmol/L BUN (7-17) mg/dL Creatinine (0.52-1.04) mg/dL Estimated GFR (>60) mL/min BUN/Creatinine Ratio (6-22) Glucose (70-100) mg/dL Calcium (8.4-10.2) mg/dL Total Bilirubin (0.2-1.3) mg/dL AST (14-36) IU/L ALT (<35) IU/L Alkaline Phosphatase (38-126) U/L Total Protein (6.3-8.2) g/dL Albumin (3.5-5.0) g/dL Globulin (1.7-4.1) g/dL Albumin/Globulin Ratio (1.0-2.8) Lipase (23-300) U/L Ur Bilirubin Confirm (Negative) Urine RBC 5-10/hpf H (0-5/HPF) Urine WBC 1-5/hpf (0-5/HPF) Ur Squamous Epith Cells 5-10 /hpf H (0-5/HPF) Urine Bacteria Occasional (0-1) (None) Urine Dip Bedside Urine Glucose 1000 mg/dl Bedside Urine Bilirubin +++ 4 Bedside Urine Ketone +/- 5 Urine Specific [place] 1.030 Bedside Urine Occult Blood +++ Bedside Urine pH 5.0 Bedside Urine Protein +/- 15 Bedside Urine Urobilinogen 3+ 8mg Bedside Urine Nitrite + Positive Bedside Urine Leukocytes +++ 500 Esterase Point of care testing: Urine Dip Bedside Urine Glucose 1000 mg/dl Bedside Urine Bilirubin +++ 4 Bedside Urine Ketone +/- 5 Urine Specific [place] 1.030 Bedside Urine Occult Blood +++ Bedside Urine pH 5.0 Bedside Urine Protein +/- 15 Bedside Urine Urobilinogen 3+ 8mg Bedside Urine Nitrite + Positive Bedside Urine Leukocytes +++ [address] scan - abdomen/pelvis: Radiologist's Impression: PROCEDURE:? CT KIDNEY URETER BLADDER (KUB) ? INDICATIONS:? recent left uret stent - left flank pain- abd bloating ? TECHNIQUE:? Axial sections were acquired from the lung bases to the pubic symphysis.? Coronal and sagittal reformats were performed.? For radiation dose reduction, the following was used: ?automated exposure control, adjustment of mA and/or kV according to patient size.? ? COMPARISON:? [facility], CT, CT KIDNEY URETER BLADDER (KUB), 12/22/2022, 17:29. ? FINDINGS:? Image quality:? Excellent.? ? Lung bases:? Unremarkable.? ? Heart:? No significant findings. ? Kidneys and ureters:? Left-sided nephroureteral stent is present in appropriate position. ?There is no hydronephrosis.? There are several nonobstructing left lower pole intraparenchymal calculi.? There is a left pelvic calculus, also nonobstructing due to the presence of the stent.? No other ureteral calculi.? There is a trace amount of expected gas in the left intrarenal collecting system.? No perinephric inflammation or fluid collection.? The right kidney and ureter are normal.? The urinary bladder is decompressed and there are no stones. ? ABDOMEN: Liver:? No masses Gallbladder:? Normal wall thickness. Biliary ducts:? Nondilated. Pancreas:? Normal. Spleen:? Normal size. Adrenal Glands:? No nodules. ? Stomach and Bowel:? Sigmoid diverticulosis and occasional diverticula elsewhere in the colon.? Normal appendix.? Decompressed stomach and normal small bowel thought obstruction. Peritoneum:? No abnormal intraperitoneal fluid.? No free air.? ? Ventral Wall: ? No hernia.? Abdominal Nodes:? No enlarged retroperitoneal or mesenteric lymph nodes.? Vessels:? Aorta and inferior vena cava are normal in size.? ? PELVIS: Pelvic Organs:? Anteverted uterus.? The anterior serosal surface is in close association with the anterior abdominal wall.? A scar is noted.? No suspicious adnexal masses. Pelvic Nodes: Unremarkable. Miscellaneous: No inguinal hernias are seen. ? ? ? Bones:? No suspicious bone lesions.? Moderate to prominent degenerative disc change at L4-5.? No fractures to cause left flank pain. ? IMPRESSION: ? 1. Appropriate position of left nephroureteral stent and no evidence of acute hydronephrosis or perinephric inflammation. ? 2. There are several calcifications retained in the left lower pole and one renal pelvic calcification.? No parapelvic inflammation. ? 3. Colonic diverticulosis without acute diverticulitis. ? 4. No explanation for left flank pain.? ECG Data Attestation: I personally reviewed and interpreted this ECG as follows: Interpretation: Sinus rhythm Ventricular rate is 64 Normal axis Normal QRS Normal QTC No ST T wave changes MDM Narrative Medical decision making narrative: Urinalysis is nitrite positive and given her history and physical exam this would be consistent with a urinary tract infection. CT scan does show stranding of the left-sided collecting system and also given her history would be consistent with pyelonephritis. She is not vomiting. Overall feels well. Is afebrile. Not tachycardic. Kidney functions unremarkable. She was given 1st dose of antibiotics here in the emergency department and she tolerated this without vomiting. Will discharge home with a prescription for antibiotics for strict return precautions. She was aware of a urine culture pending at the time of her discharge. She expressed understanding and agreement with plan. Discharge Plan Departure Patient Disposition: Home Clinical Impression: Pyelonephritis Instructions: DI for Kidney Infection Activity Restrictions/Additional Instructions: I do recommend that you take the antibiotics as directed. There was a urine culture pending at the time of your discharge we will contact you if we need to change any of the antibiotics. Keep all of your scheduled medical appointments. Return to the emergency department for new or worsening symptoms. Prescriptions: New cephalexin 500 mg capsule 500 mg PO TID 10 Days Qty: 30 0RF No Action ondansetron 4 mg tablet,disintegrating 4 mg PO Q6H PRN (Reason: nausea and vomiting) Qty: 10 0RF hydrocodone-acetaminophen 5-325 mg tablet 1 tab PO Q6H PRN (Reason: pain) Qty: 10 0RF Referrals: [facility] [Primary Care Provider] - Stand Alone Forms: Patient Portal/API
[2023-03-18] MEDS: cephALEXin 250 MG CAPSULE 500 MG PO (19:37)
[2023-03-18 19:56] VITALS: BP 138/83; PULSE 59; RESP 16; O2SAT 98
== END 2023-03-18 19:59 | disposition home or self-care (01) ==
PROVIDERS: Emergency Medicine; Emergency Provider Emergency Medicine
DX: N12 Tubulo-interstitial nephritis, not specified as acute or chronic (principal)
CPT/HCPCS: 36415; 74176; 80053; 81003; 81015; 83690; 85025; 87086; 93005; 99284

== ENCOUNTER → 2024-07-19 07:12 | Outpatient (CLI) | payer OTHER, SELFPAY ==
--- NOTE | 2024-07-19 07:14 | DI.US.S_ITS ---
PROCEDURE: US PERIPH VENOUS LOW EXTREM LT INDICATIONS: PAIN IN LEFT LOWER LEG / PREVIOUS VENOUS SURGERY TECHNIQUE: Real-time imaging, as well as color and pulse Doppler interrogation, were performed of the lower extremity deep veins from the inguinal ligament to the popliteal fossa, with documentation of the visualized calf veins. COMPARISON: None. FINDINGS: The common femoral, femoral, popliteal, and the visualized calf veins are normally compressible, and free of intraluminal thrombus. Color and pulse Doppler demonstrate normal phasic intraluminal flow. There is normal augmentation response to distal compression maneuver. IMPRESSION: No findings of left lower extremity deep venous thrombosis. Dictated by: Tod Long M.D. on 07/19/2024 at 9:12 Approved by: Tod Long M.D. on 07/19/2024 at 9:13
== END ==
DX: M79.662 Pain in left lower leg (principal)
CPT/HCPCS: 93971

== ENCOUNTER 2024-12-15 10:42 | Emergency (ER) | payer OTHER, SELFPAY ==
[2024-12-15 10:43] VITALS: BP 147/85; PULSE 78; RESP 14; TEMP 36.7; O2SAT 95; BMI 23.0
[2024-12-15 10:49] VITALS: PULSE 81; O2SAT 95
[2024-12-15 10:50] VITALS: BP 147/85; PULSE 82; O2SAT 96
[2024-12-15 11:00] VITALS: BP 134/85; PULSE 83; O2SAT 97
[2024-12-15] MEDS: OXYMETAZOLINE NASAL SPRAY 30 ML 2 SPRAYS NASAL (11:01)
--- NOTE | 2024-12-15 11:02 | ED_ITS ---
HPI - Epistaxis General Chief complaint: Nasal Problem Stated complaint: Bloody nose today Time Seen by Provider: 12/15/24 10:51 Source: patient Mode of arrival: Ambulatory History of Present Illness HPI Narrative: 59-year-old female with past medical history of type 2 diabetes cover comes into the ED from home for evaluation of epistaxis, she states it has been ongoing intermittent for the past 2 weeks, states it started spontaneously, she states that she has been seen at outside hospitals for this previously when this 1st started, was discharged with Afrin, states that she has been having intermittent success with tamponading of the bleed however she states that today she has been unable to stop the bleed. Denies any trauma or falls denies any known bleeding or clotting disorders in self or family. On exam patient is with epistaxis of the right nares. Related Data Previous Rx's Medication Instructions Recorded hydrocodone 5 mg-acetaminophen 325 1 tab PO Q6H PRN pain #10 tabs 12/22/22 mg tablet ondansetron 4 mg disintegrating 4 mg PO Q6H PRN nausea and 12/22/22 tablet vomiting #10 tabs doxycycline hyclate 100 mg capsule 100 mg PO BID 5 days #10 caps 12/15/24 Allergies Allergy/AdvReac Type Severity Reaction Status Date / Time Penicillins [PENICILLINS] Allergy Unknown Verified 03/18/23 18:08 Sulfa (Sulfonamide Allergy Unknown Verified 03/18/23 18:08 Antibiotics) [SULFA (SULFONAMIDE ANTIBIOTICS)] Review of Systems Review of Systems Narrative: General: Denies fever, chills, weight loss HEENT: Positive right-sided epistaxis Denies headache, eye drainage, eye irritation, head trauma, sore throat, voice change Cardiovascular: Denies any chest pain, palpitations, tachycardia Respiratory: Denies any shortness of breath, cough, wheeze, stridor GI/: Denies any abdominal pain, nausea, vomiting, diarrhea, bright red blood per rectum, melanotic stools, urinary frequency, urinary retention, dysuria, hematuria MSK: Denies any joint pain, muscle pains, swelling Skin: Denies any rashes, lesions, discoloration Neuro: Denies any headache, lightheadedness, dizziness, fainting, weakness Psych: Denies SI/HI Patient History Social History Smoking Status: Unknown if ever smoked Smoking Status: Unknown if ever smoked alcohol intake frequency: a few times a month Exam Narrative Exam Narrative: General: Cooperative, well-developed, not in acute distress HEENT: Normocephalic, atraumatic, PERRLA, normal sclera, eyelids normal, patient with active bleeding to the right nares, does appear to have a small abrasion noted to the lateral aspect of the inner nares, Neck: Active full range of motion, atraumatic Chest: Normal to inspection, negative crepitus, no overlying erythema ecchymosis Respiratory: Normal respiratory effort, not in acute respiratory distress, clear to auscultation bilaterally negative cough, wheeze, tachypnea, rhonchi, rales Cardiology: Regular rate rhythm negative gallop, murmur, rubs GI/: No tenderness to palpation, soft, non rigid, normal to inspection, exam deferred MSK: Full active range of motion in all 4 extremities, atraumatic, no tenderness to palpation of any bony prominences Skin: No rashes or lesions noted Neuro: Alert awake oriented x3, moves all 4 extremities spontaneously, cranial nerves intact, able to answer all questions appropriately follows commands appropriately Psych: Cooperative, negative suicidal or homicidal ideations Initial Vital Signs Initial Vital Signs: Vital Signs Temperature 98.0 F 12/15/24 10:43 Pulse Rate 78 12/15/24 10:43 Respiratory Rate 14 12/15/24 10:43 Blood Pressure 147/85 H 12/15/24 10:43 Pulse Oximetry 95 12/15/24 10:43 Oxygen Delivery Method Room Air 12/15/24 10:43 Procedures Epistaxis Control Time of procedure: 11:53 Time Out Performed: Yes Nostril: right Nose Prepped With: oxymetazoline Direct Inspection: yes and anterior source identified Clots Removed by: blowing nose Cautery Used: none Device Inserted: nasal tampon Device Size: 5 Patient Tolerated Procedure: well and no complications Course Orders Ordered: ED Orders 12/15/24 10:55 BMP [Basic Metabolic Panel] Stat CBC Auto Diff [Complete Blood Count AUTO DIFF] Stat PT [Prothrombin Time INR] Stat PTT Partial Thromboplastin Chris Stat Discontinued Medications Bacitracin (Bacitracin Oint 0.9 Gm Pckt) 1 applic TOP NOW ONE Stop: 12/15/24 11:46 Last Admin: 12/15/24 11:48 Dose: 1 applic Documented By: PAULETTE Oxymetazoline HCl (Oxymetazoline Nasal [place] 30 Ml) 2 sprays NASAL NOW ONE Stop: 12/15/24 10:52 Last Admin: 12/15/24 11:01 Dose: 2 sprays Documented By: KYALEIGH Vital Signs Vital signs: Vital Signs - 8 hr 12/15/24 10:43 12/15/24 10:49 12/15/24 10:50 Temperature 98.0 F Pulse Rate 78 81 Respiratory Rate 14 Blood Pressure 147/85 H 147/85 H Pulse Oximetry 95 95 Oxygen Delivery Method Room Air 12/15/24 10:50 12/15/24 11:00 12/15/24 11:00 Temperature Pulse Rate 82 83 Respiratory Rate Blood Pressure 134/85 Pulse Oximetry 96 97 Oxygen Delivery Method 12/15/24 11:30 12/15/24 11:30 Temperature Pulse Rate 78 Respiratory Rate Blood Pressure 136/86 Pulse Oximetry 95 Oxygen Delivery Method MDM - Epistaxis Differential Diagnosis Differential diagnosis: Likely anterior epistaxis, posterior epistaxis and other (Anemia) Lab Data 12/15/24 10:55 12/15/24 10:55 Labs: Lab Results 12/15/24 Range/Units 10:55 WBC 6.9 (4.5-11.0) X10^3/uL RBC 4.16 (4.0-5.2) X10^6/uL Hgb 12.6 (12.0-16.0) g/dL Hct 37.5 (36-46) % MCV 90.3 (80-100) fL MCH 30.2 (26-34) PG MCHC 33.5 (30-36) % RDW 13.9 (11.6-14.8) % Plt Count 292 (150-400) X10^3/uL Neut % (Auto) 49.4 L (50-75) % Lymph % (Auto) 40.2 H (25-40) % [place] % (Auto) 6.6 (3-14) % Eos % (Auto) 3.0 (2-4) % Baso % (Auto) 0.8 (0-2) % Neut # (Auto) 3400 (2480-1937) /uL Lymph # (Auto) 2800 (4759-6991) /uL [place] # (Auto) 500 (0-900) /uL Eos # (Auto) 200 (0-450) /uL Baso # (Auto) 100 (0-100) /uL PT 10.8 (9.4-12.5) SECONDS INR 1.0 (0.9-1.3) APTT 34 (25.1-36.5) SECONDS Sodium 137 (137-145) mmol/L Potassium 4.0 (3.4-5.1) mmol/L Chloride 102 (98-107) mmol/L Carbon Dioxide 27 (22-32) mmol/L BUN 18 H (7-17) mg/dL Creatinine 0.61 (0.52-1.04) mg/dL Estimated GFR > 60 (>60) mL/min BUN/Creatinine Ratio 29.5 H (6-22) Glucose 130 H (80-110) mg/dL Calcium 9.1 (8.4-10.2) mg/dL MDM Narrative Medical decision making narrative: 59-year-old female presenting for epistaxis ongoing intermittent for the past 2 weeks, states that she was seen at outside facility was discharged with Afrin spray, she states that she has been having issues with controlling the nosebleed, she states that last episode was 2 days ago, however she states that today she had a random nosebleed again was unable to control it after few hours so decided come into the ED. On exam patient with active epistaxis of the right nares, does appear to have an abrasion to the lateral aspect of the right nares, denies any trauma or falls, placed nasal tampon 5.5 cm to the right nares, patient states that she does have a referral to ENT, patient will be sent home with prophylaxis doxycycline given history of allergy to penicillins. She instructed to follow up with ENT to have the nasal tampon removed in the next 2 days, strict return precautions given she verbalized understanding of this and agrees to being discharged home with outpatient follow up Discharge Plan Departure Patient Disposition: Home Clinical Impression: Epistaxis Instructions: DI for Nosebleed Activity Restrictions/Additional Instructions: Please follow up with your ENT and your primary care doctor Please read the discharge instructions sheet carefully and bring all papers to all doctor follow-up visits, as it may contain information that your doctor may want to see. Disease processes change and evolve, if your symptoms worsen or if you develop any new symptoms that are concerning to you please return for evaluation. Your evaluation today does not show any evidence of any life- threatening/serious illnesses requiring admission to the hospital or surgery. Please follow-up with your doctor for re-evaluation in approximately 1 day. Seek immediate medical attention for any worrisome symptoms. *If you do not have a primary care provider please contact the [facility] Resource line at [phone]. They will ask some questions about your medical history and help get you set up with a doctor in the community. Prescriptions: New doxycycline hyclate 100 mg capsule 100 mg PO BID 5 Days Qty: 10 0RF No Action ondansetron 4 mg tablet,disintegrating 4 mg PO Q6H PRN (Reason: nausea and vomiting) Qty: 10 0RF hydrocodone-acetaminophen 5-325 mg tablet 1 tab PO Q6H PRN (Reason: pain) Qty: 10 0RF Referrals: [facility] [Primary Care Provider] - Stand Alone Forms: Patient Portal/API/Survey
[2024-12-15 11:07] LABS: Add Manual Diff / Slide Review NO; Basophils Absolute Auto 100 /uL (0-100); Basophils Percent Auto 0.8 % (0-2); Eosinophils Absolute Auto 200 /uL (0-450); Hematocrit 37.5 % (36-46); Hemoglobin 12.6 g/dL (12.0-16.0); Lymphocytes Absolute Auto 2800 /uL (1100-4500); Lymphocytes Percent Auto 40.2 % (25-40); Mean Corpuscular HGB Conc 33.5 % (30-36); Mean Corpuscular Hemoglobin 30.2 PG (26-34); Mean Corpuscular Volume 90.3 fL (80-100); Monocytes Absolute Auto 500 /uL (0-900); Monocytes Percent Auto 6.6 % (3-14); Neutrophils Absolute Auto 3400 /uL (1500-7000); Neutrophils Percent Auto 49.4 % (50-75); Platelet Count 292 X10^3/uL (150-400); Red Blood Cell Count 4.16 X10^6/uL (4.0-5.2); Red Cell Distribution Width 13.9 % (11.6-14.8); White Blood Cell Count 6.9 X10^3/uL (4.5-11.0)
[2024-12-15 11:16] LABS: Prothrombin Time 10.8 SECONDS (9.4-12.5)
[2024-12-15 11:19] LABS: PTT Partial Thromboplastin Tim 34 SECONDS (25.1-36.5)
[2024-12-15 11:20] LABS: BUN Creatinine Ratio 29.5 (6-22); Blood Urea Nitrogen 18 mg/dL (7-17); Calcium 9.1 mg/dL (8.4-10.2); Carbon Dioxide 27 mmol/L (22-32); Chloride 102 mmol/L (98-107); Estimated Glomerular Filt Rate > 60 mL/min (>60); Glucose 130 mg/dL (80-110); HEMOLYSIS < 15 (0-50); Sodium 137 mmol/L (137-145)
[2024-12-15 11:30] VITALS: BP 136/86; PULSE 78; O2SAT 95
[2024-12-15] MEDS: BACITRACIN OINT 0.9 GM PCKT 1 APPLIC TOP (11:48)
[2024-12-15] MEDS: DOXYCYCLINE HYCLATE 100 MG TABLET PO (11:59)
== END 2024-12-15 12:10 | disposition home or self-care (01) ==
PROVIDERS: Emergency Provider Student in an Organized Health Care Education/Training Program
DX: R04.0 Epistaxis (principal)
CPT/HCPCS: 30901; 36415; 80048; 85025; 85610; 85730; 99283; 99284